=== PATIENT | male | born 1955 | race Caucasian/White ===

== ENCOUNTER 2024-05-03 06:16 | Day surgery (SDC) | payer MEDICARE ==
[2024-05-02 11:03] VITALS: BMI 24.3
[2024-05-03] MEDS ORDERED: Lidocaine 1% (PF) 30 ML VIAL ONE (06:21)
[2024-05-03] MEDS ORDERED: Propofol 1,000 MG/100 ML VIAL IV ONE (06:21)
[2024-05-03] MEDS ORDERED: Midazolam HCl 2 mg/2 ml Vial ONE (06:27)
[2024-05-03] MEDS ORDERED: fentaNYL 50 mcg/mL 1 mL Vial ONE (06:28)
[2024-05-03] MEDS ORDERED: PHENYLEPHRINE-NS 100 MCG/ML 10 ML SYRINGE ONE (06:31)
[2024-05-03] MEDS ORDERED: GLYCOPYRROLATE/PF 0.2 MG/ML VIAL ONE (06:31)
[2024-05-03] MEDS ORDERED: PROPOFOL 20 ML ONE (06:37)
== END 2024-05-03 09:10 | disposition home or self-care (01) ==
LOC: SDC 06:16
PROVIDERS: ATTEND Internal Medicine Gastroenterology
PROC: 0DBN8ZZ Excision of Sigmoid Colon, Via Natural or Artificial Opening Endoscopic (ICD-10-PCS; principal; 2024-05-03)
PROC: 0D718ZZ Dilation of Upper Esophagus, Via Natural or Artificial Opening Endoscopic (ICD-10-PCS; 2024-05-03)
PROC: 0DJ08ZZ Inspection of Upper Intestinal Tract, Via Natural or Artificial Opening Endoscopic (ICD-10-PCS; 2024-05-03)
DX: Z12.11 Encounter for screening for malignant neoplasm of colon (principal); K51.40 Inflammatory polyps of colon without complications; K21.9 Gastro-esophageal reflux disease without esophagitis; K82.4 Cholesterolosis of gallbladder; K76.0 Fatty (change of) liver, not elsewhere classified; E11.9 Type 2 diabetes mellitus without complications; E07.9 Disorder of thyroid, unspecified; E78.00 Pure hypercholesterolemia, unspecified; F41.9 Anxiety disorder, unspecified; M19.90 Unspecified osteoarthritis, unspecified site; B19.10 Unspecified viral hepatitis B without hepatic coma; Z87.891 Personal history of nicotine dependence; Z88.8 Allergy status to other drugs, medicaments and biological substances; Z79.890 Hormone replacement therapy; Z79.84 Long term (current) use of oral hypoglycemic drugs; Z79.51 Long term (current) use of inhaled steroids; Z79.899 Other long term (current) drug therapy
CPT/HCPCS: 43235; 43450; 45385; J2250; J2704 ×2; J3010; J3490; 88305

== ENCOUNTER 2025-05-05 18:23 | Inpatient (IN) | payer MEDICARE, OTHER ==
[2025-05-05] MEDS ORDERED: Acetaminophen 500 MG TAB ONE (19:21)
[2025-05-05 19:29] LABS: #Basophils 0.05 10x3/uL (0.0-0.2); #Eosinophils 0.07 10x3/uL (0.0-0.7); #Monocytes 0.73 10x3/uL (0.11-0.59); #Neutrophils 4.80 10x3/uL (1.40-6.50); %Basophils 0.6 % (0.0-1.0); %Eosinophils 0.9 % (0.0-10.0); %Lymphocytes 26.6 % (21.0-51.0); %Monocytes 9.4 % (0.0-10.0); %Neutrophils 62.1 % (42.0-75.0); Hematocrit 38.0 % (42.0-52.0); Hemoglobin 12.2 g/dL (14.0-18.0); Mean Corpuscular Hemoglobin 28.0 pg (27.0-31.0); Mean Corpuscular Volume 87.4 fL (78.0-98.0); Platelet Count 479 10x3/uL (130-400); Red Blood Cell (RBC) Count 4.35 mill/uL (4.70-6.10); White Blood Cell (WBC) Count 7.74 10x3/uL (4.8-10.8)
[2025-05-05 19:40] LABS: ALT (SGPT) 26 U/L (Less than 45); AST (SGOT) 34 U/L (11-34); Albumin 3.9 g/dL (3.1-4.5); Alkaline Phosphatase 62 U/L (40-110); Anion Gap 18 mmol/L (10-20); BUN (Urea Nitrogen) 12 mg/dL (8.4-25.7); Bilirubin, Total 0.3 mg/dL (0.3-1.2); Calc. Creatinine Clearance 0 mL/min (70-130); Calcium 9.2 mg/dL (7.8-10.44); Carbon Dioxide 28 mmol/L (23-31); Chloride 99 mmol/L (98-107); Globulin 3.9 g/dL (2.4-3.5); Glucose 160 mg/dL (80-115); Potassium 4.0 mmol/L (3.5-5.1); Sodium 141 mmol/L (136-145)
[2025-05-05] MEDS ORDERED: cefTRIAXone (ROCEPHIN) 1 GM VIAL ONE (21:37)
[2025-05-05 21:45] LABS: Bacteria/HPF None Seen HPF (None Seen); CAUTI Indications for Culture < 2yrs of age; Glucose, Urine (Dipstick) Normal (Negative); Leukocyte Negative Leu/uL (Negative); Protein, Urine (Dipstick) Negative (Neg-Trace); RBC/HPF 0-3 HPF (0-3); Specific Gravity, Urine 1.006 (1.002-1.036); WBC/HPF None Seen HPF (0-3)
[2025-05-05 21:50] LABS: Urine Culture Reflex Yes Yes
[2025-05-06 00:20] VITALS: BMI 24.5
[2025-05-06] MEDS ORDERED: VANCOMYCIN IVPB PRN (00:29)
[2025-05-06] MEDS ORDERED: Ondansetron PF 4 MG/2 ML Vial IVP PRN (00:39)
[2025-05-06] MEDS: Vancomycin 1.5 GM / NS 500ML VIAL-2-BAG IVPB SCH (02:00)
[2025-05-06] MEDS ORDERED: Acetaminophen 325 MG TAB ONE (03:30)
[2025-05-06] MEDS: Acetaminophen 325 MG TAB PO PRN (03:31)
[2025-05-06] MEDS ORDERED: Dextrose 50% Abboject 50 ML SYRINGE SLOW IVP PRN (06:08)
[2025-05-06] MEDS ORDERED: Glucagon 1 MG/ML KIT IM PRN (06:08)
[2025-05-06] MEDS: Ketorolac Tromethamine 30 MG (1 mL) VIAL IVP SCH ×2 (07:43→17:54)
[2025-05-06] MEDS ORDERED: Levothyroxine 150 MCG TAB PO SCH (09:00)
[2025-05-06] MEDS: clonazePAM 1 MG TAB PO SCH (09:27)
[2025-05-06] MEDS: Pantoprazole 40 MG DR.TAB PO SCH (09:31)
[2025-05-06 13:44] LABS: Hematocrit 33.5 % (42.0-52.0); Hemoglobin 10.8 g/dL (14.0-18.0); Mean Corpuscular Hemoglobin 28.7 pg (27.0-31.0); Mean Corpuscular Volume 89.1 fL (78.0-98.0); Platelet Count 411 10x3/uL (130-400); Red Blood Cell (RBC) Count 3.76 mill/uL (4.70-6.10); White Blood Cell (WBC) Count 8.61 10x3/uL (4.8-10.8)
[2025-05-06 14:22] LABS: Anisocytosis SLIGHT = 6-15 cells HPF (0-5); Ovalocytes SLIGHT = 2-5 cells HPF (0-1); Platelet Adequacy Comment Platelets Increased; Smudge Cells 3.0 %
[2025-05-07 05:36] LABS: #Basophils 0.05 10x3/uL (0.0-0.2); #Eosinophils 0.08 10x3/uL (0.0-0.7); #Monocytes 0.76 10x3/uL (0.11-0.59); #Neutrophils 5.00 10x3/uL (1.40-6.50); %Basophils 0.6 % (0.0-1.0); %Eosinophils 1.0 % (0.0-10.0); %Lymphocytes 25.0 % (21.0-51.0); %Monocytes 9.6 % (0.0-10.0); %Neutrophils 63.5 % (42.0-75.0); Hematocrit 33.8 % (42.0-52.0); Hemoglobin 11.2 g/dL (14.0-18.0); Mean Corpuscular Hemoglobin 28.6 pg (27.0-31.0); Mean Corpuscular Volume 86.2 fL (78.0-98.0); Platelet Count 415 10x3/uL (130-400); Red Blood Cell (RBC) Count 3.92 mill/uL (4.70-6.10); White Blood Cell (WBC) Count 7.88 10x3/uL (4.8-10.8)
[2025-05-07 05:58] LABS: Vancomycin, Random 12.0 ug/mL (See Comment)
[2025-05-07 05:59] LABS: Anion Gap 13 mmol/L (10-20); BUN (Urea Nitrogen) 10 mg/dL (8.4-25.7); Calc. Creatinine Clearance 63 mL/min (70-130); Calcium 8.6 mg/dL (7.8-10.44); Carbon Dioxide 28 mmol/L (23-31); Chloride 101 mmol/L (98-107); Glucose 225 mg/dL (80-115); Potassium 4.0 mmol/L (3.5-5.1); Sodium 138 mmol/L (136-145)
[2025-05-07] MEDS: VANCOMYCIN 1.75 GM/350 ML BAG 1.75 GM in Premix 1 BAG IVPB SCH (10:56)
[2025-05-07] MEDS: Ibuprofen 600 MG TAB PO PRN (16:51)
[2025-05-07] MEDS: cefTRIAXone\\ROCEPHIN 1 GM in Sodium Chloride 0.9% 100 ML IVPB SCH (20:48)
[2025-05-08 04:54] LABS: #Basophils 0.04 10x3/uL (0.0-0.2); #Eosinophils 0.14 10x3/uL (0.0-0.7); #Monocytes 0.81 10x3/uL (0.11-0.59); #Neutrophils 5.95 10x3/uL (1.40-6.50); %Basophils 0.5 % (0.0-1.0); %Eosinophils 1.6 % (0.0-10.0); %Lymphocytes 19.4 % (21.0-51.0); %Monocytes 9.4 % (0.0-10.0); %Neutrophils 68.8 % (42.0-75.0); Hematocrit 37.9 % (42.0-52.0); Hemoglobin 12.1 g/dL (14.0-18.0); Mean Corpuscular Hemoglobin 28.1 pg (27.0-31.0); Mean Corpuscular Volume 87.9 fL (78.0-98.0); Platelet Count 445 10x3/uL (130-400); Red Blood Cell (RBC) Count 4.31 mill/uL (4.70-6.10); White Blood Cell (WBC) Count 8.65 10x3/uL (4.8-10.8)
[2025-05-08 05:09] LABS: Anion Gap 16 mmol/L (10-20); BUN (Urea Nitrogen) 11 mg/dL (8.4-25.7); Calc. Creatinine Clearance 83 mL/min (70-130); Calcium 8.9 mg/dL (7.8-10.44); Carbon Dioxide 24 mmol/L (23-31); Chloride 101 mmol/L (98-107); Glucose 201 mg/dL (80-115); Potassium 3.9 mmol/L (3.5-5.1); Sodium 137 mmol/L (136-145)
[2025-05-08 05:13] LABS: Vancomycin, Random 10.4 ug/mL (See Comment)
[2025-05-08] MEDS ORDERED: Iopamidol 370 76% 100 ML VIAL ONE (10:47)
[2025-05-08] MEDS: Vancomycin 1 GM Premix Bag IVPB SCH (12:58)
[2025-05-08] MEDS: Vancomycin 1 GM in Premix 1 BAG IVPB SCH (21:12)
[2025-05-09 06:36] LABS: #Basophils 0.06 10x3/uL (0.0-0.2); #Eosinophils 0.12 10x3/uL (0.0-0.7); #Monocytes 0.83 10x3/uL (0.11-0.59); #Neutrophils 4.60 10x3/uL (1.40-6.50); %Basophils 0.7 % (0.0-1.0); %Eosinophils 1.5 % (0.0-10.0); %Lymphocytes 30.3 % (21.0-51.0); %Monocytes 10.3 % (0.0-10.0); %Neutrophils 56.8 % (42.0-75.0); Hematocrit 34.8 % (42.0-52.0); Hemoglobin 11.5 g/dL (14.0-18.0); Mean Corpuscular Hemoglobin 28.7 pg (27.0-31.0); Mean Corpuscular Volume 86.8 fL (78.0-98.0); Platelet Count 459 10x3/uL (130-400); Red Blood Cell (RBC) Count 4.01 mill/uL (4.70-6.10); White Blood Cell (WBC) Count 8.09 10x3/uL (4.8-10.8)
[2025-05-09 06:54] LABS: Anion Gap 14 mmol/L (10-20); BUN (Urea Nitrogen) 13 mg/dL (8.4-25.7); Calc. Creatinine Clearance 71 mL/min (70-130); Calcium 8.7 mg/dL (7.8-10.44); Carbon Dioxide 26 mmol/L (23-31); Chloride 98 mmol/L (98-107); Glucose 216 mg/dL (80-115); Potassium 4.1 mmol/L (3.5-5.1); Sodium 134 mmol/L (136-145)
[2025-05-09 06:55] LABS: CRP, High Sensitivity at Bryan 6.91 mg/dL (< or = 0.5)
[2025-05-09 11:35] LABS: ANA Symphony (Qualitative) Negative (Negative); ANA Symphony (Quantitative) 0.3 Ratio (< 0.7 Negative); dsDNA IgG Antibody 1.0 IU/mL (<10 Negative)
[2025-05-09] MEDS: cefTRIAXone\\ROCEPHIN 1 GM in Sodium Chloride 0.9% 100 ML IVPB SCH (15:53)
[2025-05-09 17:15] LABS: Myeloperoxidase AutoAbs <0.2 units (0.0-0.9); Proteinase-3 AutoAbs Less than 0.2 units (0.0-0.9)
[2025-05-10 04:42] LABS: #Basophils 0.06 10x3/uL (0.0-0.2); #Eosinophils 0.17 10x3/uL (0.0-0.7); #Monocytes 0.89 10x3/uL (0.11-0.59); #Neutrophils 3.58 10x3/uL (1.40-6.50); %Basophils 0.9 % (0.0-1.0); %Eosinophils 2.5 % (0.0-10.0); %Lymphocytes 29.4 % (21.0-51.0); %Monocytes 13.3 % (0.0-10.0); %Neutrophils 53.5 % (42.0-75.0); Hematocrit 36.6 % (42.0-52.0); Hemoglobin 11.7 g/dL (14.0-18.0); Mean Corpuscular Hemoglobin 28.2 pg (27.0-31.0); Mean Corpuscular Volume 88.2 fL (78.0-98.0); Platelet Count 437 10x3/uL (130-400); Red Blood Cell (RBC) Count 4.15 mill/uL (4.70-6.10); White Blood Cell (WBC) Count 6.70 10x3/uL (4.8-10.8)
[2025-05-10 04:58] LABS: Anion Gap 18 mmol/L (10-20); BUN (Urea Nitrogen) 14 mg/dL (8.4-25.7); Calc. Creatinine Clearance 62 mL/min (70-130); Calcium 8.9 mg/dL (7.8-10.44); Carbon Dioxide 21 mmol/L (23-31); Chloride 100 mmol/L (98-107); Glucose 197 mg/dL (80-115); Potassium 4.6 mmol/L (3.5-5.1); Sodium 134 mmol/L (136-145); Vancomycin, Random 16.5 ug/mL (See Comment)
[2025-05-10 04:59] LABS: CRP, High Sensitivity at Bryan 5.70 mg/dL (< or = 0.5)
[2025-05-10] MEDS ORDERED: PROPOFOL 200 MG/20 ML VIAL ONE (08:43)
[2025-05-10] MEDS: Enoxaparin 40 MG (0.4 mL) SYRINGE SC SCH (21:02)
[2025-05-10] MEDS: Insulin Glargine 30 UNITS/0.3 ML VIAL SC SCH (21:03)
[2025-05-10] MEDS: Famotidine 20 MG TAB PO SCH (21:04)
[2025-05-11 10:13] VITALS: BMI 24.5
[2025-05-11 12:38] LABS: CMV DNA-PCR Test Negative (Negative)
[2025-05-11] MEDS: Insulin Glargine 30 UNITS/0.3 ML VIAL SC SCH (21:19)
[2025-05-12 05:22] LABS: Anion Gap 16 mmol/L (10-20); BUN (Urea Nitrogen) 18 mg/dL (8.4-25.7); Calc. Creatinine Clearance 60 mL/min (70-130); Calcium 8.8 mg/dL (7.8-10.44); Carbon Dioxide 27 mmol/L (23-31); Chloride 99 mmol/L (98-107); Glucose 181 mg/dL (80-115); Potassium 4.4 mmol/L (3.5-5.1); Sodium 138 mmol/L (136-145)
[2025-05-12 05:27] LABS: Vancomycin, Random 16.2 ug/mL (See Comment)
[2025-05-12] MEDS ORDERED: Lidocaine 1% PF 5 ML VIAL ONE (13:40)
[2025-05-12] MEDS ORDERED: Sodium Bicarbonate 2.5 MEQ/5 ML SDV ONE (13:40)
[2025-05-12 21:09] LABS: Coccidioides ABS (DID) Negative (Neg:<1:2); Histoplasma Mycelial AB (CF) 1:16 (Neg:<1:2); Histoplasma Yeast AB (CF) 1:2 (Neg:<1:2)
[2025-05-12] MEDS: Insulin Glargine 30 UNITS/0.3 ML VIAL SC SCH (21:13)
[2025-05-13 06:33] LABS: CRP, High Sensitivity at Bryan 3.29 mg/dL (< or = 0.5)
[2025-05-13 06:34] LABS: ALT (SGPT) 29 U/L (Less than 45); AST (SGOT) 25 U/L (11-34); Albumin 3.2 g/dL (3.1-4.5); Alkaline Phosphatase 62 U/L (40-110); Bilirubin, Direct 0.1 mg/dL (0.1-0.3); Bilirubin, Total 0.2 mg/dL (0.3-1.2)
[2025-05-14 09:09] LABS: #Basophils 0.05 10x3/uL (0.0-0.2); #Eosinophils 0.07 10x3/uL (0.0-0.7); #Monocytes 0.71 10x3/uL (0.11-0.59); #Neutrophils 4.91 10x3/uL (1.40-6.50); %Basophils 0.7 % (0.0-1.0); %Eosinophils 0.9 % (0.0-10.0); %Lymphocytes 24.9 % (21.0-51.0); %Monocytes 9.2 % (0.0-10.0); %Neutrophils 63.9 % (42.0-75.0); Hematocrit 37.6 % (42.0-52.0); Hemoglobin 11.8 g/dL (14.0-18.0); Mean Corpuscular Hemoglobin 27.9 pg (27.0-31.0); Mean Corpuscular Volume 88.9 fL (78.0-98.0); Platelet Count 463 10x3/uL (130-400); Red Blood Cell (RBC) Count 4.23 mill/uL (4.70-6.10); White Blood Cell (WBC) Count 7.68 10x3/uL (4.8-10.8)
[2025-05-14 09:23] LABS: Calc. Creatinine Clearance 63.0 mL/min (70-130)
[2025-05-14 09:24] LABS: Vancomycin, Random 10.7 ug/mL (See Comment)
[2025-05-14] MEDS: Vancomycin 1 GM in Premix 1 BAG IVPB SCH (20:41)
[2025-05-15 05:06] LABS: Anion Gap 15 mmol/L (10-20); BUN (Urea Nitrogen) 16 mg/dL (8.4-25.7); Calc. Creatinine Clearance 73 mL/min (70-130); Calcium 8.6 mg/dL (7.8-10.44); Carbon Dioxide 25 mmol/L (23-31); Chloride 99 mmol/L (98-107); Glucose 196 mg/dL (80-115); Potassium 4.3 mmol/L (3.5-5.1); Sodium 135 mmol/L (136-145)
[2025-05-15 09:13] LABS: Histoplasma Antigen - Urine Negative (<0.2 ng/mL)
[2025-05-15 12:26] VITALS: TEMP 97.7
[2025-05-15 13:38] LABS: %CD4 Pos. Lymph 28.1 % (30.8-58.5); Absolute CD4 534 /uL (359-1519); Lymphocytes/Gated Cell Count 1.9 x10E3/uL (0.7-3.1); Total Lymphocyte 25 % (Not Estab.); WBC Total Count 7.6 x10E3/uL (3.4-10.8)
[2025-05-15 16:14] VITALS: BP 114/76
== END 2025-05-15 18:02 | disposition home health service (06) | DRG 864 ==
LOC: ERS 18:23 → ERHOLD 23:33 → OBS 05-06 08:24 → OBSVTOIN 05-06 08:56
PROVIDERS: ADMIT Internal Medicine; ATTEND Family Medicine
PROC: 3E04329 Introduction of Other Anti-infective into Central Vein, Percutaneous Approach (ICD-10-PCS; 2025-05-08)
PROC: B24BZZ4 Ultrasonography of Heart with Aorta, Transesophageal (ICD-10-PCS; principal; 2025-05-10)
PROC: 05HY33Z Insertion of Infusion Device into Upper Vein, Percutaneous Approach (ICD-10-PCS; 2025-05-12)
DX: R50.9 Fever, unspecified (principal); I26.90 Septic pulmonary embolism without acute cor pulmonale; I50.32 Chronic diastolic (congestive) heart failure; B39.9 Histoplasmosis, unspecified; E11.9 Type 2 diabetes mellitus without complications; Z87.891 Personal history of nicotine dependence; Z85.71 Personal history of Hodgkin lymphoma; E03.9 Hypothyroidism, unspecified; E78.5 Hyperlipidemia, unspecified; D64.9 Anemia, unspecified; R00.0 Tachycardia, unspecified; D75.839 Thrombocytosis, unspecified; Z79.84 Long term (current) use of oral hypoglycemic drugs; Z79.899 Other long term (current) drug therapy
CPT/HCPCS: 36415; 36416; 36573; 71045; 71260; 71275; 72156; 72157; 74177; 80048; 80053; 80076; 80202; 81001; 82565; 83516; 83605; 83615; 84145; 84484; 85007; 85025; 85027; 86037; 86038; 86141; 86225; 86361; 86480; 86635; 86698; 87040; 87086; 87385; 87449; 87497; 87798; 87899; 93005; 93010; 93306; 93312; 96365; C1751; G0378; J0696; J1650; J1815; J1885; J2704; J3373; J3375; J7030; J7050; Q9967

== ENCOUNTER 2025-06-07 13:17 | Outpatient (CLI) | payer OTHER ==
[~2025-06-07 13:17] MED LIST: Iopamidol 370 76% 100 ML VIAL ONE
== END 2025-06-07 13:18 | disposition home or self-care (01) ==
LOC: CT 13:17
PROVIDERS: ATTEND Internal Medicine Critical Care Medicine
DX: R91.8 Other nonspecific abnormal finding of lung field (principal); K80.20 Calculus of gallbladder without cholecystitis without obstruction
CPT/HCPCS: 71260; J1642; Q9967